=== PATIENT | male | born 1940 | race Caucasian/White ===

== ENCOUNTER → 2016-08-18 15:33 | Outpatient (CLI) | payer MEDICARE ==
[~2016-08-18 15:33] MED LIST: AZOR 10-40 MG T1 TAB PO; GLIPIZIDE10 MG PO; GLUCOPHAGE1000 MG PO; HYDROCODONE-APA1 TAB PO; JANUVIA100 MG PO; LEVOTHROID200 MCG PO; PLAVIX75 MG; PLAVIX75 MG PO; TRIBENZOR 40-11 EAC1 PO
== END | disposition home or self-care (01) ==
LOC: D.LABREF 15:33
DX: R30.0 Dysuria (principal)

== ENCOUNTER → 2016-08-28 10:14 | Outpatient (CLI) | payer MEDICARE ==
[2015-06-08 07:39] VITALS: BMI 35.5
== END | disposition home or self-care (01) ==
LOC: D.US 10:14
DX: R19.09 Other intra-abdominal and pelvic swelling, mass and lump (principal)

== ENCOUNTER → 2017-01-16 08:43 | Outpatient (CLI) | payer MEDICARE ==
[2015-06-08 07:39] VITALS: BMI 35.5
[2017-01-16 15:52] LABS: ALBUMIN 4.3 g/dL (3.4-5.0); ANION GAP 20.4 mmol/L (8-16); BILIRUBIN - TOTAL 0.61 mg/dL (0.2-1.3); CALCIUM 9.3 mg/dL (8.5-10.1); CARBON DIOXIDE 25.7 mmol/L (21.0-32.0); CHOL - HDL RATIO 2.8 ratio (2.3-4.9); CREATININE - SERUM 1.7 mg/dL (0.6-1.3); LDL-HDL RATIO 1.5 ratio (1.5-3.5); POTASSIUM - SERUM 5.1 mmol/L (3.5-5.1); PROTEIN - SERUM 7.7 g/dL (6.4-8.2)
== END | disposition home or self-care (01) ==
LOC: D.LABREF 08:43
PROVIDERS: Family Medicine
DX: E78.2 Mixed hyperlipidemia (principal)

== ENCOUNTER → 2017-11-27 08:17 | Outpatient (CLI) | payer MEDICARE ==
[2015-06-08 07:39] VITALS: BMI 35.5
== END | disposition home or self-care (01) ==
LOC: D.MRI 08:17
DX: M54.16 Radiculopathy, lumbar region (principal)

== ENCOUNTER → 2018-11-26 19:13 | Outpatient (CLI) | payer MEDICARE ==
[2015-06-08 07:39] VITALS: BMI 35.5
== END | disposition home or self-care (01) ==
LOC: D.LABREF 19:13
PROVIDERS: ATTEND Surgery
DX: D17.1 Benign lipomatous neoplasm of skin and subcutaneous tissue of trunk (principal)

== ENCOUNTER → 2020-02-27 09:19 | Outpatient (CLI) | payer MEDICARE ==
[2015-06-08 07:39] VITALS: BMI 35.5
== END | disposition home or self-care (01) ==
LOC: D.HCCECHO 09:19
PROVIDERS: ATTEND Internal Medicine Cardiovascular Disease
DX: I25.10 Atherosclerotic heart disease of native coronary artery without angina pectoris (principal)